=== PATIENT | male | born 1940 | race Caucasian/White ===

== ENCOUNTER 2018-02-26 09:36 | Day surgery (SDC) | payer OTHER ==
[~2018-02-26] VITALS: Ht 193 cm; Wt 97.4 kg
[~2018-02-26 09:36] MED LIST: IRON325 M1 PO; MELATONIN5 M1 PO; NEURONTIN300 MG PO; ROBAXIN500 MG PO
[2018-02-26] MEDS ORDERED: METHOCARBAMOL500 MG PO (10:08)
[2018-02-26] MEDS ORDERED: NEURONTIN300 MG PO (10:10)
[2018-02-26 10:16] LABS: BASOPHIL (%) 0.8 % (0-1); EOSINOPHIL (%) 10.9 % (0-5); EOSINOPHIL COUNT 0.6 K/uL (0-0.3); HEMATOCRIT 35.7 % (38.0-50.0); HEMOGLOBIN 11.4 G/DL (12.5-16.6); IMMATURE GRANULOCYTE (%) 0.4 % (0.0-0.7); LYMPHOCYTE (%) 26.3 % (15-42); LYMPHOCYTE COUNT 1.3 K/uL (1.0-2.8); MCH 29.9 PG (29.0-34.0); MCHC 31.9 G/DL (30.0-36.0); MCV 93.7 FL (86-99); MONOCYTE (%) 10.5 % (3-12); MONOCYTE COUNT 0.5 K/uL (0-0.8); NEUTROPHIL (%) 51.1 % (45-76); NEUTROPHIL COUNT 2.6 K/uL (1.8-6.4); NRBC (%) 0.8 /100 WBC (0-0); PLATELET COUNT 336 K/uL (156-360); RBC DIS.WIDTH-CV 17.4 % (11.8-14.6); RED BLOOD COUNT 3.81 M/uL (4.00-5.50); WHITE BLOOD COUNT 5.1 K/uL (4.1-10.2)
[2018-02-26 10:22] LABS: INTER. NORMALIZED RATIO 1.1
[2018-02-26 10:23] VITALS: BP 129/67
[2018-02-26 10:25] LABS: PTT 26.7 SEC (25-37)
[2018-02-26 10:26] LABS: CHLORIDE 108 mEq/L (99-109); SODIUM 140 mEq/L (136-147)
[2018-02-26 10:28] LABS: GLUCOSE 91 mg/dL (70-99)
[2018-02-26 10:32] LABS: CREATININE 1.1 mg/dL (0.6-1.3); GFR ESTIMATE (CALCULATED) > 59 mL/min/ (58.99-99999); UREA NITROGEN (BUN) 12 mg/dL (9-23)
[2018-02-26 15:36] VITALS: BP 141/70
[2018-02-26 19:28] VITALS: BP 133/68
[2018-02-27 00:05] VITALS: BP 132/69
[2018-02-27 03:54] VITALS: BP 105/58
[2018-02-27 07:58] VITALS: BP 120/60
[2018-02-27] MEDS ORDERED: ASPIR-LOW81 MG PO (09:23)
[2018-02-27] MEDS ORDERED: ENDOCET 5-3251 EACH PO (09:24)
== END 2018-02-27 12:27 | disposition home or self-care (01) ==
LOC: SDC 09:36 → 2SOUTH 14:05 → 3EAST 14:05 → ENRESERV 14:20 → 3EAST 15:21
PROVIDERS: Orthopaedic Surgery
DX: S42.001K Fracture of unspecified part of right clavicle, subsequent encounter for fracture with nonunion (principal); M47.812 Spondylosis without myelopathy or radiculopathy, cervical region; M43.8X2 Other specified deforming dorsopathies, cervical region; Z85.46 Personal history of malignant neoplasm of prostate; Z82.49 Family history of ischemic heart disease and other diseases of the circulatory system; Z80.8 Family history of malignant neoplasm of other organs or systems
CPT/HCPCS: 73000; 76000; 80048; 85025; 85610; 85730; 93005; C1713; G0378; J0690; J1100; J1170; J1885; J2250; J2405; J2710; J2795; J3010; J7120; J7643